=== PATIENT | female | born 1990 ===

== ENCOUNTER 2017-09-15 14:35 | Observation (INO) ==
--- NOTE | 2017-09-15 13:57 | OB/GYN History & Physical ---
Date of Encounter: 09/15/17 Time of Encounter: 13:41 Assessment and Plan (1) 39 weeks gestation of Current visit: Yes Status: Acute (2) Vaginal bleeding Current visit: Yes Status: Acute Pt sent by [facility] tender at [facility] for US due to some vaginal bleeding over the last week. Pt is agreeable to ultrasound but declines any other interventions at this time. History of Present Illness Chief complaint: vaginal bleeding HPI: Ms. Lazo is a 27 year old female [place] pt presenting at 39w4d from [facility] for US due to intermittent spotting since SVE last week. She denies any other complaints at this time. Rare contractions. No LOF. Good FM. Past Med Surg Social Fam HX - Past Medical History Medical history: no medical history Psychiatric history: no psych history - Past Surgical History Surgical History: no surgical history - Social History Smoking Status: Never smoker Packs per day: Prosper Vleasquez Smokeless Tobacco Status: No Alcohol use: none Drug use: none Obstetrical History - Pregnancies : 2 Para: 1 Livin Review of System OB All systems PM: reviewed and no additional remarkable complaints except as stated Exam - Constitutional Constitutional: well developed, well nourished, no acute distress, average body habitus - HEENT HEENT: Mucus Membranes Moist - Lungs Respiratory exam: CTAB - Cardiovascular Cardiovascular exam: RRR - Abdomen Abdomen: Present: gravid, non tender - Extremities Extremities exam: normal inspection Results All other labs normal. - VTE Reasons for not Prescribing Prophylaxis: Treatment not Indicated - Low risk for VTE
== END 2017-09-15 16:24 | disposition home or self-care (01) ==
LOC: 1NENULAB
PROVIDERS: ADMIT Registered Nurse; ATTEND Registered Nurse